=== PATIENT | female | born 1935 | race Caucasian/White ===

== ENCOUNTER 2018-11-17 16:13 | Inpatient (IN) | payer MEDICARE, OTHER ==
[~2018-11-17] VITALS: Ht 160 cm; Wt 61.3 kg
--- NOTE | 2018-11-17 16:19 | NUR ---
ED Nurse Note: Pt SILVIA from [facility] for psych evaluation. Pt AOx4, seems talkative at this time. Pt stated " I might have made a joke a couple of days ago that I want to hurt myself but I do not want to hurt myself". Pt denied SI/HI. No history of SI/HI before. Vital signs stable. Will cont to monitor.
--- NOTE | 2018-11-17 16:23 | NUR ---
ED Nurse Note: Blood and urine collected and sent to lab.
[2018-11-17 17:07] VITALS: BP 120/66
--- NOTE | 2018-11-17 17:22 | Emergency Room Report ---
History of Present Illness General Chief Complaint: Behavioral Complaint Source: Patient, Medical Record Present Illness HPI 83-year-old female presents ED for evaluation. Patient sent in for psychiatric evaluation. Per nursing staff patient told nurse yesterday that she wanted to hurt herself. Patient does have psychiatric history. At this time patient denies SI or HI. Denies hearing voices. Denies alcohol or drug use. No other aggravating relieving factors. Denies any other associated symptoms Allergies: Coded Allergies: No Known Allergies (Unverified , 11/17/18) Patient History Past Medical History: psych hx Past Surgical History: none Pertinent Family History: none Social History: Denies: smoking, alcohol use, drug use Now: No Immunizations: UTD Reviewed Nursing Documentation: PMH: Agreed; PSxH: Agreed Nursing Documentation-PMH Past Medical History: No History, Except For Review of Systems All Other Systems: negative except mentioned in HPI Physical Exam Vital Signs Date Time Temp Pulse Resp B/P (MAP) Pulse Ox O2 Delivery O2 Flow Rate FiO2 11/17/18 16:12 98.1 90 20 134/79 94 Room Air Sp02 EP Interpretation: reviewed, normal General Appearance: no apparent distress, alert, GCS 15, non-toxic Head: normocephalic, atraumatic Eyes: bilateral eye normal inspection, bilateral eye PERRL ENT: hearing grossly normal, normal pharynx, no angioedema, normal voice Neck: full range of motion, supple/symm/no masses Respiratory: chest non-tender, lungs clear, normal breath sounds, speaking full sentences Cardiovascular #1: regular rate, rhythm, no edema Cardiovascular #2: 2+ carotid (R), 2+ carotid (L), 2+ radial (R), 2+ radial (L) , 2+ dorsalis pedis (R), 2+ dorsalis pedis (L) Gastrointestinal: normal bowel sounds, non tender, soft, non-distended, no guarding, no rebound Rectal: deferred Genitourinary: normal inspection, no CVA tenderness Musculoskeletal: back normal, gait/station normal, normal range of motion, non- tender Neurologic: alert, oriented x3, responsive, motor strength/tone normal, sensory intact, speech normal Psychiatric: mood/affect normal, no suicidal/homicidal ideation, no delusions, anxious Reflexes: 3+ bicep (R), 3+ bicep (L), 3+ tricep (R), 3+ tricep (L), 3+ knee (R) , 3+ knee (L) Skin: normal color, no rash, warm/dry, well hydrated Lymphatic: no adenopathy Medical Decision Making Diagnostic Impression: Primary Impression: Behavioral disorder Additional Impression: UTI (urinary tract infection) Qualified Codes: N39.0 - Urinary tract infection, site not specified ER Course 83-year-old female since ED for evaluation. Stated that she wants to hurt herself at alf facility. Differentialpsychosis, depression, delirium Patient placed on stretcher. After initial history physical exam reveals a elderly female in no acute distress. Patient maintaining good eye contact. Answering questions appropriately. No evidence of delusions. I ordered labs, IV fluids, UA Labsno leukocytosis, hemoglobin/hematocrit stable, potassium 3.2, UA positive for bacteria Potassium repleted. Antibiotics given. Dr. Elaine will evaluate the patient patient will be admitted to Dr Fernandez. Diagnosisbehavioral concern, UTI Admitted to floor in serious condition Labs Test 11/17/18 17:06 White Blood Count 10.2 K/UL (4.8-10.8) Red Blood Count 5.09 M/UL (4.20-5.40) Hemoglobin 15.5 G/DL (12.0-16.0) Hematocrit 44.3 % (37.0-47.0) Mean Corpuscular Volume 87 FL (80-99) Mean Corpuscular Hemoglobin 30.4 PG (27.0-31.0) Mean Corpuscular Hemoglobin Concent 34.9 G/DL (32.0-36.0) Red Cell Distribution Width 11.5 % (11.6-14.8) Platelet Count 241 K/UL (150-450) Mean Platelet Volume 6.9 FL (6.5-10.1) Neutrophils (%) (Auto) 79.9 % (45.0-75.0) Lymphocytes (%) (Auto) 15.7 % (20.0-45.0) Monocytes (%) (Auto) 3.1 % (1.0-10.0) Eosinophils (%) (Auto) 0.8 % (0.0-3.0) Basophils (%) (Auto) 0.5 % (0.0-2.0) Urine Color Pale yellow Urine Appearance Clear Urine pH 5 (4.5-8.0) Urine Specific [place] 1.025 (1.005-1.035) Urine Protein Negative (NEGATIVE) Urine Glucose (UA) Negative (NEGATIVE) Urine Ketones Negative (NEGATIVE) Urine Blood 4+ (NEGATIVE) Urine Nitrite Negative (NEGATIVE) Urine Bilirubin Negative (NEGATIVE) Urine Urobilinogen Normal MG/DL (0.0-1.0) Urine Leukocyte Esterase 3+ (NEGATIVE) Urine RBC 10-15 /HPF (0 - 2) Urine WBC 5-10 /HPF (0 - 2) Urine Squamous Epithelial Cells Few /LPF (NONE/OCC) Urine Bacteria Moderate /HPF (NONE) Sodium Level 140 MMOL/L (136-145) Potassium Level 3.2 MMOL/L (3.5-5.1) Chloride Level 102 MMOL/L (98-107) Carbon Dioxide Level 26 MMOL/L (21-32) Anion Gap 12 mmol/L (5-15) Blood Urea Nitrogen 15 mg/dL (7-18) Creatinine 1.0 MG/DL (0.55-1.30) Estimat Glomerular Filtration Rate mL/min (>60) Glucose Level 137 MG/DL (74-106) Calcium Level 9.3 MG/DL (8.5-10.1) Total Bilirubin 0.4 MG/DL (0.2-1.0) Aspartate Amino Transf (AST/SGOT) 23 U/L (15-37) Alanine Aminotransferase (ALT/SGPT) 18 U/L (12-78) Alkaline Phosphatase 83 U/L (46-116) Total Protein 7.5 G/DL (6.4-8.2) Albumin 3.2 G/DL (3.4-5.0) Globulin 4.3 g/dL Albumin/Globulin Ratio 0.7 (1.0-2.7) Salicylates Level 1.7 ug/mL (2.8-20) Urine Opiates Screen Negative (NEGATIVE) Acetaminophen Level < 2 MCG/ML (10-30) Urine Barbiturates Screen Negative (NEGATIVE) Phencyclidine (PCP) Screen Negative (NEGATIVE) Urine Amphetamines Screen Negative (NEGATIVE) Urine Benzodiazepines Screen Negative (NEGATIVE) Urine Cocaine Screen Negative (NEGATIVE) Urine Marijuana (THC) Screen Negative (NEGATIVE) Serum Alcohol < 3 mg/dL Last Vital Signs Date Time Temp Pulse Resp B/P (MAP) Pulse Ox O2 Delivery O2 Flow Rate FiO2 11/17/18 17:07 87 120/66 11/17/18 16:26 20 Room Air 11/17/18 16:12 98.1 94 Status: improved Disposition: ADMITTED INPATIENT Condition: Serious Referrals: Phoenix Zhang MD (PCP) Tavon Pablo MD Nov 17, 2018 17:22
[2018-11-17] MEDS ORDERED: LORATADINE10 M1 PO (17:23)
[2018-11-17] MEDS ORDERED: OSCAL D500 MG PO (17:23)
[2018-11-17] MEDS ORDERED: DOCUSATE SODIU100 MG ORAL (17:23)
[2018-11-17] MEDS ORDERED: TYLENOL EXTRA500 MG ORAL (17:23)
[2018-11-17] MEDS ORDERED: GABAPENTIN300 MG ORAL (17:23)
[2018-11-17] MEDS ORDERED: ACETAMINOPHEN325 M1 ORAL (17:23)
[2018-11-17] MEDS ORDERED: MAALOX ADVANCE770 ML PO (17:23)
[2018-11-17 17:25] LABS: APPEARANCE,URINE CLEAR; BILIRUBIN, URINE NEGATIVE (NEGATIVE); COLOR,URINE PALE YELLOW; GLUCOSE, URINE (UA) NEGATIVE (NEGATIVE); KETONES,URINE NEGATIVE (NEGATIVE); LEUKOCYTE ESTERASE ,URINE 3+ (NEGATIVE); NITRITE,URINE NEGATIVE (NEGATIVE); PH,URINE 5 (4.5-8.0); PROTEIN,URINE NEGATIVE (NEGATIVE); UROBILINOGEN,URINE NORMAL MG/DL (0.0-1.0)
[2018-11-17 17:28] LABS: ANION GAP 12 mmol/L (5-15); BLOOD UREA NITROGEN 15 mg/dL (7-18); CALCIUM 9.3 MG/DL (8.5-10.1); CARBON DIOXIDE 26 MMOL/L (21-32); CHLORIDE 102 MMOL/L (98-107); POTASSIUM 3.2 MMOL/L (3.5-5.1); SODIUM 140 MMOL/L (136-145)
[2018-11-17 17:29] LABS: BASOPHILS % (AUTO) 0.5 % (0.0-2.0); EOSINOPHILS % (AUTO) 0.8 % (0.0-3.0); HEMATOCRIT 44.3 % (37.0-47.0); HEMOGLOBIN 15.5 G/DL (12.0-16.0); LYMPHOCYTES % (AUTO) 15.7 % (20.0-45.0); MEAN CORPUSCULAR VOLUME 87 FL (80-99); MONOCYTES % (AUTO) 3.1 % (1.0-10.0); NEUTROPHILS % (AUTO) 79.9 % (45.0-75.0); PLATELET COUNT 241 K/UL (150-450); RED BLOOD COUNT 5.09 M/UL (4.20-5.40); RED CELL DISTRIBUTION WIDTH 11.5 % (11.6-14.8); WHITE BLOOD COUNT 10.2 K/UL (4.8-10.8)
[2018-11-17 17:31] LABS: ALANINE AMINOTRANSFERASE 18 U/L (12-78); ALBUMIN 3.2 G/DL (3.4-5.0); ALBUMIN/GLOBULIN RATIO 0.7 (1.0-2.7); ALKALINE PHOSPHATASE 83 U/L (46-116); ASPARTATE AMINO TRANSFERASE 23 U/L (15-37); BILIRUBIN,TOTAL 0.4 MG/DL (0.2-1.0)
[2018-11-17 18:31] VITALS: BP 121/66
--- NOTE | 2018-11-17 18:33 | NUR ---
ED Nurse Note: Per Dr. Pablo, awaiting for communication with admitting
--- NOTE | 2018-11-17 18:56 | NUR ---
ED Nurse Note: RN on [address] is not ready to take report at this time. Will endorse for next shift.
[2018-11-17 19:15] VITALS: BP 129/69
[2018-11-17] MEDS ORDERED: cefTRIAXone 1 GM in D5W 55 ML IVPB ONE (19:15)
--- NOTE | 2018-11-17 19:35 | NUR ---
ED Nurse Note: telephone report given to Theresa RN
--- NOTE | 2018-11-17 19:37 | NUR ---
ED Nurse Note: PT SENT TO [facility]LOOR WITH MICHAEL SANCHEZ. PT IS AOX4, ON ROOMAIR, SKIN INTACT, AND SHOWS NO SIGNS OF DISTRESS. PT HAS ALL BELONGINGS SENT WITH HER.
[2018-11-17 20:00] VITALS: BP 127/82
--- NOTE | 2018-11-17 20:00 | NUR ---
NURSE NOTES: Pt is admitted from ER with Dx of Behavioral disorder under Dr. Zhang. Report received from Akosua NORRIS RN. Vitals stable. Pt is awake and verbal. Pt is oriented to the unit. Physical assessment performed, skin intact. Pt has bilateral lower extremity weakness, incontinent. No SOB. Pt reports no suicidal or homicidal ideation. Pt's belongings verified with patient. Dr. Zhang's exchange is called and message left with [facility] for doctor to call back with admitting orders. Bed locked low in position, side rails up and call light within reach. Bed alarm on. Fall Precautions implemented. Pt will be monitored.
--- NOTE | 2018-11-17 21:30 | NUR ---
NURSE NOTES: Dr. lawson Called back with admitting orders, orders entered in the EMAR and acknowledged. Pt is calm in bed.
--- NOTE | 2018-11-17 22:00 | Initial Psychiatric Evaluation ---
Psychiatry Consultation Psychiatry Consultation Chief Complaint: Behavioral Complaint History of Present Illness: 83 yo female with hx of depression and anxiety. the pt was admitted for ams. the pt has been more confused than baseline. the pt is depressed and irritable. the pt is not suicidal and is calm. Allergies: Coded Allergies: No Known Allergies (Unverified , 11/17/18) Past Psychiatric History: mdd anxiety no sa Medication History Scheduled Calcium Carbonate (Oyster Shell Calcium-Vit D Tab), 500 MG PO DAILY, (Reported) Docusate Sodium* (Docusate Sodium*), 100 MG ORAL DAILY, (Reported) Gabapentin* (Gabapentin*), 300 MG ORAL DAILY, (Reported) Scheduled PRN Acetaminophen* (Acetaminophen 325MG Tablet*), 325 MG ORAL Q4H PRN for For Pain, (Reported) Acetaminophen* (Tylenol Extra Strength*), 500 MG ORAL Q6H PRN for Pain Scale (6- 10), (Reported) Loratadine (Loratadine), 10 MG PO for ALLERGY, (Reported) Mag Hydrox/Al Hydrox/Simeth (Maalox Advanced Suspension), 10 ML PO for INDIGESTION/HEARTBURN, (Reported) Patient History History Provided By: Patient, Medical Record, PMD Objective Data Height (Feet): 5 Height (Inches): 3.00 Weight (Pounds): 120 Appearance: well groomed Behavior Mannerisms: good eye contact Affect: blunted Mood: depressed, irritable Speech: clear Thought Process: goal-directed Thought Content: no abnormalities Suicidal Ideation: not present Assessment/Plan Problem List: (1) UTI (urinary tract infection) ICD Codes: N39.0 - Urinary tract infection, site not specified SNOMED: [id number] Qualifiers: Qualified Codes: N39.0 - Urinary tract infection, site not specified (2) dementia (3) MDD (major depressive disorder) ICD Codes: F32.9 - Major depressive disorder, single episode, unspecified SNOMED: 530859989 Treatment Plan: dc welbutrin lexapro 10mg po qam provided Alize Rosado MD Nov 17, 2018 22:00
[2018-11-17] MEDS ORDERED: Mylanta II UD 30ml ORAL PRN (22:15)
[2018-11-18] VITALS: BP 130/78
--- NOTE | 2018-11-18 03:18 | NUR ---
NURSE NOTES: Pt is in bed, asleep. No acute distress noted.
[2018-11-18 04:00] VITALS: BP 120/67
[2018-11-18 05:57] LABS: BASOPHILS % (AUTO) 0.8 % (0.0-2.0); EOSINOPHILS % (AUTO) 1.3 % (0.0-3.0); HEMATOCRIT 46.1 % (37.0-47.0); HEMOGLOBIN 15.4 G/DL (12.0-16.0); LYMPHOCYTES % (AUTO) 16.2 % (20.0-45.0); MEAN CORPUSCULAR VOLUME 91 FL (80-99); MONOCYTES % (AUTO) 4.9 % (1.0-10.0); NEUTROPHILS % (AUTO) 76.8 % (45.0-75.0); PLATELET COUNT 236 K/UL (150-450); RED BLOOD COUNT 5.08 M/UL (4.20-5.40); WHITE BLOOD COUNT 7.7 K/UL (4.8-10.8)
[2018-11-18 06:18] LABS: ANION GAP 11 mmol/L (5-15); BLOOD UREA NITROGEN 13 mg/dL (7-18); CARBON DIOXIDE 26 MMOL/L (21-32); CHLORIDE 105 MMOL/L (98-107); CREATININE 0.9 MG/DL (0.55-1.30); POTASSIUM 4.3 MMOL/L (3.5-5.1); SODIUM 141 MMOL/L (136-145)
--- NOTE | 2018-11-18 07:20 | NUR ---
HAND-OFF: Report given to Harriet Hernandez LVN. Pt is in bed, awake and verbal. Informed Harriet to place SCDs on bilat lower extremity.
[2018-11-18 08:00] VITALS: BP 130/74
[2018-11-18] MEDS: Heparin 5000 units/ml inj SUBQ SCH ×2 (08:13→21:49)
[2018-11-18] MEDS: Docusate 100mg cap ORAL SCH (08:14)
[2018-11-18] MEDS: Calcium Carbonate 500mg w/Vit D 200iu tab ORAL SCH (08:15)
--- NOTE | 2018-11-18 08:36 | NUR ---
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 UTI VS: BP 134/79, P 90, T 98.0, RR 20, SpO2 94 K 3.2, URINE: Blood 4+, Bacteria MANY IS:NS 500ml IV K-DUR 40meq CEFTRIAXONE 55ml IVPB ADMITTED TO MED/SURG DCP: RETURN TO [facility]
[2018-11-18] MEDS ORDERED: BuPROPion XL 150mg tab ORAL SCH (09:00)
--- NOTE | 2018-11-18 10:48 | History and Physical ---
History of Present Illness General Date patient seen: Nov 18, 2018 Time patient seen: 08:00 Reason for Hospitalization: Behavioral Complaint Present Illness HPI 83 year old woman with history of depression, schizophrenia, snf resident who was sent in for evaluation after expressing suicidal ideations. In ED she was found to have abnormal UA. Evaluated by Psychiatry. Patient reports that she was just joking when she expressed the suicidal ideations - denies being depressed or having a plan to harm herself. She denies any headache, visual disturbance, dyspnea, chest pain, palpitations. Social History: No tobacco or drus Family History: No CAD or stroke Allergies: Coded Allergies: No Known Allergies (Unverified , 11/17/18) Medication History Scheduled Calcium Carbonate (Oyster Shell Calcium-Vit D Tab), 500 MG PO DAILY, (Reported) Docusate Sodium* (Docusate Sodium*), 100 MG ORAL DAILY, (Reported) Gabapentin* (Gabapentin*), 300 MG ORAL DAILY, (Reported) Scheduled PRN Acetaminophen* (Acetaminophen 325MG Tablet*), 325 MG ORAL Q4H PRN for For Pain, (Reported) Acetaminophen* (Tylenol Extra Strength*), 500 MG ORAL Q6H PRN for Pain Scale (6- 10), (Reported) Loratadine (Loratadine), 10 MG PO for ALLERGY, (Reported) Mag Hydrox/Al Hydrox/Simeth (Maalox Advanced Suspension), 10 ML PO for INDIGESTION/HEARTBURN, (Reported) Patient History Healthcare decision maker Resuscitation status Do Not Resuscitate Advanced Directive on File No Review of Systems Constitutional: Denies: chills, fever ENT: Denies: ear pain Respiratory: Denies: cough Cardiovascular: Denies: chest pain Gastrointestinal: Denies: abdominal pain Genitourinary: Denies: dysuria, frequency Musculoskeletal: Denies: back pain Skin: Denies: rash Neurological: Denies: headache, numbness, paresthesia, seizure Endocrine: Denies: excessive sweating, flushing Hematologic/Lymphatic: Denies: blood clots Physical Exam General Appearance: no apparent distress, alert HEENT: normocephalic, atraumatic, anicteric, mucous membranes moist Neck: non-tender, normal alignment, supple, normal inspection Respiratory/Chest: chest wall non-tender, lungs clear, normal breath sounds, no respiratory distress, no accessory muscle use Cardiovascular/Chest: normal peripheral pulses, normal rate, regular rhythm Abdomen: normal bowel sounds, non tender, soft, no organomegaly Extremities: normal range of motion, non-tender, normal inspection Skin Exam: normal pigmentation, warm/dry 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, no motor/sensory deficits, abnormal gait , alert, normal mood/affect Last 24 Hour Vital Signs Date Time Temp Pulse Resp B/P (MAP) Pulse Ox O2 Delivery O2 Flow Rate FiO2 11/18/18 09:00 Room Air 11/18/18 04:00 97.2 71 18 120/67 (84) 96 11/18/18 00:38 Room Air 11/18/18 00:00 97.5 67 18 130/78 (95) 96 11/17/18 20:00 97.4 64 18 127/82 (97) 96 11/17/18 19:37 98.1 80 21 129/69 96 Room Air 11/17/18 19:15 98.1 80 21 129/69 96 Room Air 11/17/18 18:31 89 18 121/66 97 Room Air 11/17/18 17:07 87 120/66 11/17/18 16:26 90 20 Room Air 11/17/18 16:12 98.1 90 20 134/79 94 Room Air Intake and Output 11/17/18 11/18/18 19:00 07:00 Intake Total 500 ml 55 ml Balance 500 ml 55 ml Intake IV Total 500 ml 55 ml # Voids 1 1 Laboratory Tests Test 11/17/18 17:06 11/18/18 05:15 White Blood Count 10.2 K/UL (4.8-10.8) 7.7 K/UL (4.8-10.8) Red Blood Count 5.09 M/UL (4.20-5.40) 5.08 M/UL (4.20-5.40) Hemoglobin 15.5 G/DL (12.0-16.0) 15.4 G/DL (12.0-16.0) Hematocrit 44.3 % (37.0-47.0) 46.1 % (37.0-47.0) Mean Corpuscular Volume 87 FL (80-99) 91 FL (80-99) Mean Corpuscular Hemoglobin 30.4 PG (27.0-31.0) 30.3 PG (27.0-31.0) Mean Corpuscular Hemoglobin Concent 34.9 G/DL (32.0-36.0) 33.3 G/DL (32.0-36.0) Red Cell Distribution Width 11.5 % (11.6-14.8) L 12.0 % (11.6-14.8) Platelet Count 241 K/UL (150-450) 236 K/UL (150-450) Mean Platelet Volume 6.9 FL (6.5-10.1) 7.5 FL (6.5-10.1) Neutrophils (%) (Auto) 79.9 % (45.0-75.0) H 76.8 % (45.0-75.0) H Lymphocytes (%) (Auto) 15.7 % (20.0-45.0) L 16.2 % (20.0-45.0) L Monocytes (%) (Auto) 3.1 % (1.0-10.0) 4.9 % (1.0-10.0) Eosinophils (%) (Auto) 0.8 % (0.0-3.0) 1.3 % (0.0-3.0) Basophils (%) (Auto) 0.5 % (0.0-2.0) 0.8 % (0.0-2.0) Urine Color Pale yellow Urine Appearance Clear Urine pH 5 (4.5-8.0) Urine Specific [place] 1.025 (1.005-1.035) Urine Protein Negative (NEGATIVE) Urine Glucose (UA) Negative (NEGATIVE) Urine Ketones Negative (NEGATIVE) Urine Blood 4+ (NEGATIVE) H Urine Nitrite Negative (NEGATIVE) Urine Bilirubin Negative (NEGATIVE) Urine Urobilinogen Normal MG/DL (0.0-1.0) Urine Leukocyte Esterase 3+ (NEGATIVE) H Urine RBC 10-15 /HPF (0 - 2) H Urine WBC 5-10 /HPF (0 - 2) H Urine Squamous Epithelial Cells Few /LPF (NONE/OCC) Urine Bacteria Moderate /HPF (NONE) H Sodium Level 140 MMOL/L (136-145) 141 MMOL/L (136-145) Potassium Level 3.2 MMOL/L (3.5-5.1) L 4.3 MMOL/L (3.5-5.1) Chloride Level 102 MMOL/L (98-107) 105 MMOL/L (98-107) Carbon Dioxide Level 26 MMOL/L (21-32) 26 MMOL/L (21-32) Anion Gap 12 mmol/L (5-15) 11 mmol/L (5-15) Blood Urea Nitrogen 15 mg/dL (7-18) 13 mg/dL (7-18) Creatinine 1.0 MG/DL (0.55-1.30) 0.9 MG/DL (0.55-1.30) Estimat Glomerular Filtration Rate mL/min (>60) mL/min (>60) Glucose Level 137 MG/DL (74-106) H 98 MG/DL (74-106) Calcium Level 9.3 MG/DL (8.5-10.1) 9.0 MG/DL (8.5-10.1) Total Bilirubin 0.4 MG/DL (0.2-1.0) Aspartate Amino Transf (AST/SGOT) 23 U/L (15-37) Alanine Aminotransferase (ALT/SGPT) 18 U/L (12-78) Alkaline Phosphatase 83 U/L (46-116) Total Protein 7.5 G/DL (6.4-8.2) Albumin 3.2 G/DL (3.4-5.0) L Globulin 4.3 g/dL Albumin/Globulin Ratio 0.7 (1.0-2.7) L Salicylates Level 1.7 ug/mL (2.8-20) L Urine Opiates Screen Negative (NEGATIVE) Acetaminophen Level < 2 MCG/ML (10-30) L Urine Barbiturates Screen Negative (NEGATIVE) Phencyclidine (PCP) Screen Negative (NEGATIVE) Urine Amphetamines Screen Negative (NEGATIVE) Urine Benzodiazepines Screen Negative (NEGATIVE) Urine Cocaine Screen Negative (NEGATIVE) Urine Marijuana (THC) Screen Negative (NEGATIVE) Serum Alcohol < 3 mg/dL Vitamin D 25-Hydroxy Pending 25-Hydroxy Vitamin D2 Pending 25-Hydroxy Vitamin D3 Pending Thyroid Stimulating Hormone (TSH) 4.028 uiU/mL (0.358-3.740) Microbiology Date/Time Source Procedure Growth Status 11/17/18 17:06 Urine,Clean Catch Urine Culture - Preliminary Gram Negative Bacillus 1 Resulted Height (Feet): 5 Height (Inches): 3.00 Weight (Pounds): 120 Medications Current Medications Medications (Trade) Dose Ordered Sig/[place] Route PRN Reason Start Time Stop Time Status Last Admin Dose Admin Acetaminophen (Tylenol) 650 mg Q6H PRN ORAL Mild Pain/Temp > 100.5 11/17/18 22:00 12/17/18 21:59 11/18/18 00:59 Al Hydroxide/Mg Hydroxide (Mylanta II) 30 ml Q6H PRN ORAL INDIGESTION 11/17/18 22:15 12/17/18 22:14 Bupropion HCl (Wellbutrin XL) 150 mg DAILY ORAL 11/18/18 09:00 12/18/18 08:59 11/18/18 08:12 Calcium Carbonate (OsCal D) 1 tab DAILY ORAL 11/18/18 09:00 12/18/18 08:59 11/18/18 08:15 Docusate Sodium (Colace) 100 mg DAILY ORAL 11/18/18 09:00 12/18/18 08:59 11/18/18 08:14 Gabapentin (Neurontin) 300 mg DAILY ORAL 11/18/18 09:00 12/18/18 08:59 11/18/18 08:14 Heparin Sodium (Porcine) (Heparin 5000 units/ml) 5,000 units EVERY 12 HOURS SUBQ 11/18/18 09:00 12/18/18 08:59 11/18/18 08:13 Loratadine (Claritin 10mg) 10 mg DAILY PRN ORAL allergies 11/17/18 22:00 12/17/18 21:59 Assessment/Plan Assessment: 83 year old woman who presents from snf with transient acute encephalopathy, suicidal ideations and UTI. 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 Prescribe GIGI/ARB upon discharge for patients with left ventricular systolic dysfunction. If not, the reason is clearly documented in the medical chart. ~~Measure #8 (CHF):~All ages. Prescribe a beta mauricio upon discharge for patients with left ventricular systolic dysfunction. If not, the reason is clearly documented in the medical chart. ~~Measure #47:~~Advance care plan or surrogate decision maker documented in the medical record. X Measure #130 The provider has documented, updated, or reviewed the patients current medication list and has documented it in the patients note. ~ X Measure #374 (All): Send report to referring provider. ~~Measure #407(Sepsis due to MSSA bacteremia): Age 18+~Patient treated with a beta-lactam antibiotic (Nafcillin, Oxacillin or Cefazolin) as definitive therapy. MEDICAL COMPLEXITY High complexity medical decision making (need 2/3 categories) Problem - need 4 points X Acute/new problem with new plan for workup (4 points, 1 max) ~~Acute/new problem without additional workup (3 points, 1 max) ~~Unstable chronic problem actively being managed (2 point each, 2 max) ~~Stable chronic problem actively being managed (1 point each, 2 max) ~~Self-limited/transient process (constipation, muscle ache, etc) (1 point each , 2 max) Data - need 4 points X Reviewed labs/imaging studies (1 points, 2 max) X Independent review of imaging (EKG, xrays, etc) (2 points, 2 max) X Discussed case with consult/other MD/RN (2 points, 2 max) High Risk - qualify if have one of the following: X Severe exacerbation of acute problem, acute mental status change, IV narcotics , monitoring drug levels (vancomycin, INR, tacrolimus etc) I spent 70 minutes on this patient's case, and\ 35 minutes was dedicated to counseling and/or care coordination. Time of note may not reflect time of encounter. Tod Winkler MD Nov 18, 2018 10:48
[2018-11-18 12:00] VITALS: BP 115/71
--- NOTE | 2018-11-18 14:34 | NUR ---
CHARGE NURSE NOTES: PATIENT SEEN BY DR. FARIAS. PER PATIENT, CLEARED FOR DC. DR. RUVALCABA MADE AWARE, PER MD , AWAITING FOR URINE CX RESULT.
--- NOTE | 2018-11-18 15:48 | NUR ---
PATIENT IS STABLE , RESTING WELL CHARGE NURSE WILL CHANGE STATUS TO INPATIENT NOTED..
[2018-11-18 16:00] VITALS: BP 118/68
--- NOTE | 2018-11-18 16:41 | NUR ---
PATIENT REQUESTED TYLENOL 650 MG P.O. TOLERATED IT WELL .. PATIENT APPEARS TO CONFUSED AT TIMES.. HALLUCINATING SEE THING IN THE AIR.. REORIENTED BACK TO PLACE AND TIME... WATCHING TELEVISION .. STABLE AT THIS TIME PLACED CALL LIGHT IN REACH
--- NOTE | 2018-11-18 17:45 | Consultation ---
History of Present Illness General Date patient seen: Nov 18, 2018 Chief Complaint: Altered Mental Status Referring physician: Dr. Lamberto Howard Present Illness HPI 83 year old woman with history of depression, schizophrenia, halfway resident who was sent in for evaluation after expressing suicidal ideations. In ED she was found to have abnormal UA. Evaluated by Psychiatry. Patient reports that she was just joking when she expressed the suicidal ideations - denies being depressed or having a plan to harm herself. She denies any headache, visual disturbance, dyspnea, chest pain, palpitations. Allergies: Coded Allergies: No Known Allergies (Unverified , 11/17/18) Medication History Scheduled Calcium Carbonate (Oyster Shell Calcium-Vit D Tab), 500 MG PO DAILY, (Reported) Cefuroxime Axetil* (Cefuroxime*), 250 MG PO Q12HR Docusate Sodium* (Docusate Sodium*), 100 MG ORAL DAILY, (Reported) Gabapentin* (Gabapentin*), 300 MG ORAL DAILY, (Reported) Scheduled PRN Acetaminophen* (Acetaminophen 325MG Tablet*), 325 MG ORAL Q4H PRN for For Pain, (Reported) Acetaminophen* (Tylenol Extra Strength*), 500 MG ORAL Q6H PRN for Pain Scale (6- 10), (Reported) Loratadine (Loratadine), 10 MG PO for ALLERGY, (Reported) Mag Hydrox/Al Hydrox/Simeth (Maalox Advanced Suspension), 10 ML PO for INDIGESTION/HEARTBURN, (Reported) Patient History Limited by: other - Patient refused to answer most interview questions or neurological exam commands. Healthcare decision maker Resuscitation status Do Not Resuscitate Advanced Directive on File No Review of Systems Constitutional: Denies: no symptoms, see HPI, chills, sweats, fever, malaise, weakness, other Eye: Denies: no symptoms, see HPI, eye pain, blurred vision, tearing, double vision, nose pain, nose congestion, acuity changes, discharge, other ENT: Denies: no symptoms, see HPI, ear pain, ear discharge, nose pain, nose congestion, throat pain, throat swelling, mouth pain, hearing loss, nasal discharge, other Respiratory: Denies: no symptoms, see HPI, cough, orthopnea, shortness of breath, stridor, wheezing, CAPPS, sputum, other Cardiovascular: Denies: no symptoms, see HPI, chest pain, edema, palpitations, syncope, PND, other Gastrointestinal: Denies: no symptoms, see HPI, abdominal pain, constipation, diarrhea, nausea, vomiting, melena, hematemesis, other Genitourinary: Denies: no symptoms, see HPI, discharge, dysuria, frequency, hematuria, pain, retention, incontinence, urgency, vag bleed/dc, other Musculoskeletal: Denies: no symptoms, see HPI, back pain, gout, joint pain, joint swelling, muscle pain, muscle stiffness, other Skin: Denies: no symptoms, see HPI, rash, change in color, change in hair/nails , dryness, lesions, other Psychiatric: Denies: no symptoms, see HPI, prior hx, anxiety, depressed feelings, emotional problems, SI, HI, hallucinations, other Neurological: Denies: no symptoms, see HPI, headache, numbness, paresthesia, seizure, tingling, tremors, focal weakness, syncope, dizziness, other Endocrine: Denies: no symptoms, see HPI, excessive sweating, flushing, intolerance to temperature, increased thirst, increased urine, unexplained weight loss, other Hematologic/Lymphatic: Denies: no symptoms, see HPI, anemia, blood clots, easy bleeding, easy bruising, swollen glands, diathesis, other Physical Exam General Appearance: WD/WN, no apparent distress, alert, confused, agitated HEENT: normocephalic, atraumatic, anicteric, mucous membranes moist, EOMI, pharynx normal, no JVD Respiratory/Chest: normal breath sounds, no respiratory distress, no accessory muscle use Cardiovascular/Chest: no JVD Extremities: normal inspection Skin Exam: normal pigmentation, warm/dry Neurologic: no motor/sensory deficits, alert, responsive, disoriented - Asked if she knows the name of the location she is in "I don't care about that sort of thing" When given the option to choose they type of place she was in , she did not respond. She knows her name- time/ circumstances were not responded to by patient. , other - Patient responded to exam interview " Oh not this again, you are being a pest." Asked if any complaints, pain, paresthesia or weakness- patient responded by shaking her head no. Physical exam other than visual inspection not performed as patient did not consent to being examined. Musculoskeletal: normal muscle bulk Last 24 Hour Vital Signs Date Time Temp Pulse Resp B/P (MAP) Pulse Ox O2 Delivery O2 Flow Rate FiO2 11/18/18 17:08 97.8 11/18/18 16:00 97.8 79 18 118/68 (85) 96 11/18/18 12:00 98.1 76 19 115/71 (86) 97 11/18/18 09:00 Room Air 11/18/18 08:00 98.6 80 17 130/74 (92) 94 11/18/18 04:00 97.2 71 18 120/67 (84) 96 11/18/18 00:38 Room Air 11/18/18 00:00 97.5 67 18 130/78 (95) 96 11/17/18 20:00 97.4 64 18 127/82 (97) 96 11/17/18 19:37 98.1 80 21 129/69 96 Room Air 11/17/18 19:15 98.1 80 21 129/69 96 Room Air 11/17/18 18:31 89 18 121/66 97 Room Air Intake and Output 11/17/18 11/18/18 18:59 06:59 Intake Total 500 ml 55 ml Balance 500 ml 55 ml IV Total 500 ml 55 ml # Voids 1 1 Laboratory Tests Test 11/18/18 05:15 White Blood Count 7.7 K/UL (4.8-10.8) Red Blood Count 5.08 M/UL (4.20-5.40) Hemoglobin 15.4 G/DL (12.0-16.0) Hematocrit 46.1 % (37.0-47.0) Mean Corpuscular Volume 91 FL (80-99) Mean Corpuscular Hemoglobin 30.3 PG (27.0-31.0) Mean Corpuscular Hemoglobin Concent 33.3 G/DL (32.0-36.0) Red Cell Distribution Width 12.0 % (11.6-14.8) Platelet Count 236 K/UL (150-450) Mean Platelet Volume 7.5 FL (6.5-10.1) Neutrophils (%) (Auto) 76.8 % (45.0-75.0) H Lymphocytes (%) (Auto) 16.2 % (20.0-45.0) L Monocytes (%) (Auto) 4.9 % (1.0-10.0) Eosinophils (%) (Auto) 1.3 % (0.0-3.0) Basophils (%) (Auto) 0.8 % (0.0-2.0) Sodium Level 141 MMOL/L (136-145) Potassium Level 4.3 MMOL/L (3.5-5.1) Chloride Level 105 MMOL/L (98-107) Carbon Dioxide Level 26 MMOL/L (21-32) Anion Gap 11 mmol/L (5-15) Blood Urea Nitrogen 13 mg/dL (7-18) Creatinine 0.9 MG/DL (0.55-1.30) Estimat Glomerular Filtration Rate mL/min (>60) Glucose Level 98 MG/DL (74-106) Calcium Level 9.0 MG/DL (8.5-10.1) Vitamin D 25-Hydroxy Pending 25-Hydroxy Vitamin D2 Pending 25-Hydroxy Vitamin D3 Pending Thyroid Stimulating Hormone (TSH) 4.028 uiU/mL (0.358-3.740) Height (Feet): 5 Height (Inches): 3.00 Weight (Pounds): 120 Medications Current Medications Medications (Trade) Dose Ordered Sig/Ana Paula Route PRN Reason Start Time Stop Time Status Last Admin Dose Admin Acetaminophen (Tylenol) 650 mg Q6H PRN ORAL Mild Pain/Temp > 100.5 11/17/18 22:00 12/17/18 21:59 11/18/18 16:38 Al Hydroxide/Mg Hydroxide (Mylanta II) 30 ml Q6H PRN ORAL INDIGESTION 11/17/18 22:15 12/17/18 22:14 Calcium Carbonate (OsCal D) 1 tab DAILY ORAL 11/18/18 09:00 12/18/18 08:59 11/18/18 08:15 Ceftriaxone Sodium 1 gm/ Dextrose 55 ml @ 110 mls/hr Q24H IVPB 11/18/18 18:00 11/25/18 17:59 11/18/18 17:41 Docusate Sodium (Colace) 100 mg DAILY ORAL 11/18/18 09:00 12/18/18 08:59 11/18/18 08:14 Escitalopram Oxalate (Lexapro) 10 mg DAILY ORAL 11/19/18 09:00 12/19/18 08:59 Gabapentin (Neurontin) 300 mg DAILY ORAL 11/18/18 09:00 12/18/18 08:59 11/18/18 08:14 Heparin Sodium (Porcine) (Heparin 5000 units/ml) 5,000 units EVERY 12 HOURS SUBQ 11/18/18 09:00 12/18/18 08:59 11/18/18 08:13 Loratadine (Claritin 10mg) 10 mg DAILY PRN ORAL allergies 11/17/18 22:00 12/17/18 21:59 Assessment/Plan Problem List: (1) UTI (urinary tract infection) Assessment & Plan: Treat with Abx Maintain normothermia Manage sx of discomfort ICD Codes: N39.0 - Urinary tract infection, site not specified SNOMED: 23690503 Qualifiers: Qualified Codes: N39.0 - Urinary tract infection, site not specified (2) Behavioral disorder Assessment & Plan: Recommend Psych f/u SNOMED: 399961708 (3) MDD (major depressive disorder) ICD Codes: F32.9 - Major depressive disorder, single episode, unspecified SNOMED: 436370651 Qualifiers: (4) dementia Assessment & Plan: Possible Metabolic Encephalopathy superimposed but no sx at this time Q4 Hour neuro checks. Neurologically stable and intact at time of interview. Status: stable Xochitl Bhandari N.P. Nov 18, 2018 17:45
[2018-11-18] MEDS ORDERED: cefTRIAXone 1 GM in D5W 55 ML IVPB SCH (18:00)
--- NOTE | 2018-11-18 19:23 | NUR ---
HAND-OFF: Report given to ROB Eddy.
[2018-11-18 20:00] VITALS: BP 129/74
--- NOTE | 2018-11-18 20:00 | NUR ---
NURSE NOTES: Received report from Renata Delgado RN. Patient on room air. Iv intact, patent, and running TKO. Bed in lowest position with call light in reach. Will continue with plan of care.
--- NOTE | 2018-11-18 21:27 | Psych Consult Progress Note ---
Psychiatry Progress Note Psychiatry Progress Note Medications Current Medications Medications (Trade) Dose Ordered Sig/Ana Paula Route PRN Reason Start Time Stop Time Status Last Admin Dose Admin Acetaminophen (Tylenol) 650 mg Q6H PRN ORAL Mild Pain/Temp > 100.5 11/17/18 22:00 12/17/18 21:59 11/18/18 16:38 Al Hydroxide/Mg Hydroxide (Mylanta II) 30 ml Q6H PRN ORAL INDIGESTION 11/17/18 22:15 12/17/18 22:14 Calcium Carbonate (OsCal D) 1 tab DAILY ORAL 11/18/18 09:00 12/18/18 08:59 11/18/18 08:15 Ceftriaxone Sodium 1 gm/ Dextrose 55 ml @ 110 mls/hr Q24H IVPB 11/18/18 18:00 11/25/18 17:59 11/18/18 17:41 Docusate Sodium (Colace) 100 mg DAILY ORAL 11/18/18 09:00 12/18/18 08:59 11/18/18 08:14 Escitalopram Oxalate (Lexapro) 10 mg DAILY ORAL 11/19/18 09:00 12/19/18 08:59 Gabapentin (Neurontin) 300 mg DAILY ORAL 11/18/18 09:00 12/18/18 08:59 11/18/18 08:14 Heparin Sodium (Porcine) (Heparin 5000 units/ml) 5,000 units EVERY 12 HOURS SUBQ 11/18/18 09:00 12/18/18 08:59 11/18/18 08:13 Loratadine (Claritin 10mg) 10 mg DAILY PRN ORAL allergies 11/17/18 22:00 12/17/18 21:59 Problems: (1) UTI (urinary tract infection) Status: Acute (2) dementia (3) MDD (major depressive disorder) Neurological/Psychiatric: Reports: anxiety, depressed, emotional problems Allergies: Coded Allergies: No Known Allergies (Unverified , 11/17/18) Objective Data Height (Feet): 5 Height (Inches): 3.00 Weight (Pounds): 120 General Appearance: WD/WN, no apparent distress, alert, thin Mental Status the pt was comfortable and cooperative the pt is depressed and irritable the pt is not suicidal the pt has memory impairment. Assessment/Plan Problem List: (1) UTI (urinary tract infection) ICD Codes: N39.0 - Urinary tract infection, site not specified SNOMED: 48981795 Qualifiers: Qualified Codes: N39.0 - Urinary tract infection, site not specified (2) dementia (3) MDD (major depressive disorder) ICD Codes: F32.9 - Major depressive disorder, single episode, unspecified SNOMED: 456560994 Qualifiers: Status: doing well, stable Diagnoses Results of Pharmacotherapy: cont lexapro provided ro/st the pt is not meeting the criteria for 5150 the pt doesnt need psych hospitalization Alize Elaine MD Nov 18, 2018 21:27
[2018-11-19] VITALS: BP 137/80
[2018-11-19 04:00] VITALS: BP 125/80
[2018-11-19 06:00] LABS: BASOPHILS % (AUTO) 1.2 % (0.0-2.0); EOSINOPHILS % (AUTO) 2.4 % (0.0-3.0); HEMATOCRIT 45.5 % (37.0-47.0); HEMOGLOBIN 15.4 G/DL (12.0-16.0); LYMPHOCYTES % (AUTO) 25.9 % (20.0-45.0); MEAN CORPUSCULAR VOLUME 91 FL (80-99); MONOCYTES % (AUTO) 5.5 % (1.0-10.0); NEUTROPHILS % (AUTO) 64.9 % (45.0-75.0); PLATELET COUNT 246 K/UL (150-450); RED BLOOD COUNT 5.01 M/UL (4.20-5.40); RED CELL DISTRIBUTION WIDTH 12.2 % (11.6-14.8); WHITE BLOOD COUNT 4.8 K/UL (4.8-10.8)
[2018-11-19 06:38] LABS: ANION GAP 10 mmol/L (5-15); BLOOD UREA NITROGEN 12 mg/dL (7-18); CALCIUM 9.2 MG/DL (8.5-10.1); CARBON DIOXIDE 27 MMOL/L (21-32); CHLORIDE 104 MMOL/L (98-107); CREATININE 0.9 MG/DL (0.55-1.30); SODIUM 140 MMOL/L (136-145)
--- NOTE | 2018-11-19 07:20 | NUR ---
NURSE NOTES: RN received pt in stable condition sleeping in bed. No s/s of acute distress or SOB. Bed in low, locked position, call light within reach. Will continue to monitor.
--- NOTE | 2018-11-19 07:21 | NUR ---
HAND-OFF: Report given to ROB Morales.
[2018-11-19 08:00] VITALS: BP 117/78
--- NOTE | 2018-11-19 08:12 | NUR ---
NURSE NOTES: RN left message for Dr. Zhang; pt positive for VRE Rectum.
--- NOTE | 2018-11-19 08:21 | NUR ---
NURSE NOTES: RN received call back from Dr. Huynh re pt - VRE Rectum. No new orders received.
--- NOTE | 2018-11-19 08:53 | NUR ---
NURSE NOTES: Pt left floor in stable condition for CT scan.
--- NOTE | 2018-11-19 09:20 | NUR ---
NURSE NOTES: Pt returned to floor in stable condition and is resting in bed.
--- NOTE | 2018-11-19 09:27 | Diagnostic Imaging Report ---
Indication: Altered mental status Technique: Continuous helical CT scanning of the head was performed utilizing automated exposure control without intravenous contrast material. Axial and coronal reconstructions were obtained. Comparison: None CT dose: Total DLP 1425.35 mGycm; CTDI vol 70.38 mGy Findings: There is no acute intracranial hemorrhage, mass effect or shift of midline structures. The ventricles, cisterns and sulci are prominent consistent with atrophy. Periventricular hypoattenuation is seen, a nonspecific finding is commonly related to chronic microvascular ischemic changes. There are atherosclerotic vascular calcifications. A punctate focus of low-attenuation is noted in the left basal ganglia which may represent chronic lacunar infarct versus prominent perivascular space. Visualized mastoid air cells and paranasal sinuses are unremarkable. No focal lesions of the bony calvarium or soft tissues of the scalp are seen. IMPRESSION: No evidence of acute intracranial hemorrhage, mass effect or cortical edema. MRI may be obtained for more sensitive evaluation as clinically indicated. Atrophy and nonspecific periventricular hypoattenuation suggestive of chronic ischemic microvascular changes. The CT scanner at [facility] is accredited by the [employer] and the scans are performed using protocols designed to limit radiation exposure to as low as reasonably achievable to attain images of sufficient resolution adequate for diagnostic evaluation.
[2018-11-19] MEDS: Docusate 100mg cap ORAL SCH (09:33)
[2018-11-19] MEDS: Calcium Carbonate 500mg w/Vit D 200iu tab ORAL SCH (09:36)
[2018-11-19] MEDS: Heparin 5000 units/ml inj SUBQ SCH (09:40)
[2018-11-19] MEDS ORDERED: CEFUROXIME250 MG PO (10:30)
--- NOTE | 2018-11-19 10:39 | Discharge Summary ---
Discharge Summary Hospital Course Date of Admission Nov 18, 2018 at 16:36 Date of Discharge 11/19/18 Admitting Diagnosis BEHAVIORAL, AGITATION HPI Paula Randall is a 83 year old female who was admitted on Nov 18, 2018 at 16: 36 for Behavioral Agitation Hospital Course 83 year old woman who presents from residential with transient acute encephalopathy, suicidal ideations and UTI. Treated with ceftriaxone, seen by psychiatry and neurology. CT head negative. She will be discharged back to SNF in improved condition #Acute encephalopathy, transient and resolved #Suicidal ideations, resolved #Depression and Schizophrenia #Proteus UTI, sensitive to cephalosporins -s/p ceftriaxone, transition to Ceftin for 3 more days -cleared by psychiatry -seen by Neurology, CT head negative -Stable for discharge back to SNF Time spent in preparing discharge was 32 minutes including coordination with nursing and case management Discharge Discharge Disposition Patient was discharged to SNF Discharge Diagnoses: (1) UTI (urinary tract infection) Tod Winkler MD Nov 19, 2018 10:39
[2018-11-19 12:00] VITALS: BP 133/69
[2018-11-19 16:00] VITALS: BP 138/85
--- NOTE | 2018-11-19 16:04 | NUR ---
DISCHARGE PLANNED PT WILL DC TO [facility], [place] [address] [phone] FOR NURSE TO NURSE REPORT [facility] WILL SUPPORTIVE EMPLOYMENT CASE MANAGER AT 1800 Addendum: 11/19/18 at 1607 by Amada Padilla LVN PRISON
--- NOTE | 2018-11-19 16:59 | Psych Consult Progress Note ---
Psychiatry Progress Note Psychiatry Progress Note Medications Current Medications Medications (Trade) Dose Ordered Sig/Ana Paula Route PRN Reason Start Time Stop Time Status Last Admin Dose Admin Acetaminophen (Tylenol) 650 mg Q6H PRN ORAL Mild Pain/Temp > 100.5 11/17/18 22:00 12/17/18 21:59 11/19/18 14:28 Al Hydroxide/Mg Hydroxide (Mylanta II) 30 ml Q6H PRN ORAL INDIGESTION 11/17/18 22:15 12/17/18 22:14 Calcium Carbonate (OsCal D) 1 tab DAILY ORAL 11/18/18 09:00 12/18/18 08:59 11/19/18 09:36 Ceftriaxone Sodium 1 gm/ Dextrose 55 ml @ 110 mls/hr Q24H IVPB 11/18/18 18:00 11/25/18 17:59 11/18/18 17:41 Docusate Sodium (Colace) 100 mg DAILY ORAL 11/18/18 09:00 12/18/18 08:59 11/19/18 09:33 Escitalopram Oxalate (Lexapro) 10 mg DAILY ORAL 11/19/18 09:00 12/19/18 08:59 11/19/18 09:34 Gabapentin (Neurontin) 300 mg DAILY ORAL 11/18/18 09:00 12/18/18 08:59 11/19/18 09:35 Heparin Sodium (Porcine) (Heparin 5000 units/ml) 5,000 units EVERY 12 HOURS SUBQ 11/18/18 09:00 12/18/18 08:59 11/19/18 09:40 Loratadine (Claritin 10mg) 10 mg DAILY PRN ORAL allergies 11/17/18 22:00 12/17/18 21:59 Problems: (1) dementia (2) MDD (major depressive disorder) Allergies: Coded Allergies: No Known Allergies (Unverified , 11/17/18) Objective Data Height (Feet): 5 Height (Inches): 3.00 Weight (Pounds): 135 General Appearance: WD/WN, no apparent distress, alert, thin Appearance: well groomed Behavior Mannerisms: good eye contact Mental Status Exam - Affect: constricted Mental Status Exam - Mood: depressed, irritable Speech: clear Mental Status Exam - Thought P: logical Mental Status Exam - Suicidal: not present Assessment/Plan Problem List: (1) UTI (urinary tract infection) ICD Codes: N39.0 - Urinary tract infection, site not specified SNOMED: 72799473 Qualifiers: Qualified Codes: N39.0 - Urinary tract infection, site not specified (2) dementia (3) MDD (major depressive disorder) ICD Codes: F32.9 - Major depressive disorder, single episode, unspecified SNOMED: 403527790 Qualifiers: Status: stable Plan: the pt will be cont n Lexapro will discharged today not a dts/dto Alize Elaine MD Nov 19, 2018 16:59
--- NOTE | 2018-11-19 17:30 | NUR ---
NURSE NOTES: RN gave report to Matt at [facility]. Pt expecting transport picker feeder at 1800. RN reviewed discharge packet to be sent with pt. RN emphasized pt bedbound, unable to ambulate and fall risk. DNR / DNI; POLST in chart. Pt admitted for altered mental status, more confused than baseline, with suicidal ideation. Pt denied suicidal ideation while hospitalized. Urine culture positive for gram - bacillus. Pt to resume SNF meds plus Cefuroxim for 3 days.
--- NOTE | 2018-11-19 18:05 | NUR ---
NURSE NOTES: Pt discharged in stable condition. No s/s of acute distress or SOB. Pt belongings accounted for with pt. IV and arm band removed. RN gave report to Ambulance transport and provided discharge packed. Liz Hernandez awaiting pt; report given prior (see note).
== END 2018-11-19 18:10 | DRG 690 ==
LOC: EDBD 16:13 → EMR 16:53 → OBSVTOIN 16:57 → 4E 16:57 → INTOOBSV 16:57 → EDBEDREQ 17:21 → OBSVTOIN 11-18 16:36
DX: N39.0 Urinary tract infection, site not specified (principal); G93.49 Other encephalopathy; R45.851 Suicidal ideations; F32.9 Major depressive disorder, single episode, unspecified; F20.9 Schizophrenia, unspecified; B96.4 Proteus (mirabilis) (morganii) as the cause of diseases classified elsewhere; F03.90 Unspecified dementia, unspecified severity, without behavioral disturbance, psychotic disturbance, mood disturbance, and anxiety; Z66 Do not resuscitate
CPT/HCPCS: 36415; 70450; 80048; 80053; 80307; 80329; 81003; 82306; 84443; 85025; 87081; 87086; 87181; 96365; 99284; J8499